=== PATIENT | female | born 1945 | race Caucasian/White ===

== ENCOUNTER 2019-12-25 23:36 | Inpatient (IN) | payer OTHER, BC ==
[~2019-12-25] VITALS: Ht 162.6 cm; Wt 54.4 kg
[2019-12-25 23:40] VITALS: BP 166/82
[2019-12-25] MEDS ORDERED: LISINOPRIL2.5 MG PO (23:46)
[2019-12-25] MEDS ORDERED: PRAVASTATIN SOD20 MG PO (23:46)
[2019-12-25] MEDS ORDERED: LATANOPROST 0.2.5 ML OPHTHALMIC (23:47)
[2019-12-25] MEDS ORDERED: ASA81BEC PO (23:48)
[2019-12-26] VITALS (11 sets, daily range): BP systolic 126–166; BP diastolic 56–95
[2019-12-26 00:16] LABS: ABSOLUTE NEUTROPHILS 8.4 thou/uL (1.4-8.2); BASOPHILS 0.5 % (0.0-2.0); EOSINOPHILS 2.1 % (0.0-3.0); HEMATOCRIT 37.1 % (37.0-47.0); HEMOGLOBIN 12.7 gm/dL (12.0-15.0); LYMPHOCYTES 15.4 % (24.0-44.0); MCHC 34.2 g/dL (28.0-37.0); MCV 102.5 fL (80.0-100.0); MONOCYTES 7.5 % (1.0-8.0); PLATELET COUNT 394 thou/uL (150-400); POLYS 74.5 % (36.0-66.0); RBC 3.62 mil/uL (4.20-5.00); RDW 13.2 % (10.5-14.5); WBC 11.2 thou/uL (4.0-11.0)
--- NOTE | 2019-12-26 00:31 | NUR ---
Report given to NGOZI Murray
[2019-12-26 02:18] LABS: CALCIUM 8.1 mg/dL (8.5-10.1); CREATININE 0.8 mg/dL (0.6-1.0); POTASSIUM 3.8 mmol/L (3.5-5.1)
--- NOTE | 2019-12-26 04:22 | NUR ---
PATIENT ADMITTED FROM ER DEPARTMENT AT 0353, CONNECTED TO MONITOR, ADMISSION INTERVENTIONS CONPELETED, CONSENTS SIGNED. PATIENT EDUCATED ON FALL PRECAUTIONS, CALL LIGHT, PATIENT PACKET. NO SIGN OF ACUTE DISTRESS NOTED AT THIS TIME.
--- NOTE | 2019-12-26 13:35 | NUR ---
ASSUMED CARE OF PT AT 0700. IV INFILTRATED WITH NS RUNNING, DR VAZQUEZ SAYS OK TO LEAVE OUT, CAN REPLACE IF NEEDED. PT WANTS TO GO HOME, STATES HER TONGUE FEELS MUCH BETTER AND SHE IS READY TO DC. HER IS ELDERLY AND REQUIRES MUCH CARE AT HOME. SORAYA CLEAR LIQUIDS AND ADVANCED TO FULL. DR VAZQUEZ WANTS TO GIVE ANOTHER DOSE OF PO PEPCID, PREDNISONE AND BENEDRYL BEFORE DINNER AND IF PT IS OK, DC HOME AT THAT TIME. PT IS AGREEABLE TO THIS PLAN.
[2019-12-26] MEDS ORDERED: PEPCID20 MG PO (17:42)
[2019-12-26] MEDS ORDERED: PREDNISONE 5 MG5 M1 PO (17:50)
[2019-12-26] MEDS ORDERED: DIPHENHYDR12.5 MG/2 PO (17:53)
[2019-12-26] MEDS ORDERED: NORVASC 2.5 MG2.5 M1 PO (18:00)
== END 2019-12-26 18:55 | disposition home or self-care (01) | DRG 916 ==
LOC: ER 23:36 → EROBS 12-26 02:58 → ICU 12-26 02:58
PROVIDERS: Emergency Medicine; ADMIT Internal Medicine; ATTEND Internal Medicine
DX: T78.3XXA Angioneurotic edema, initial encounter (principal); I10 Essential (primary) hypertension; F17.210 Nicotine dependence, cigarettes, uncomplicated; E78.5 Hyperlipidemia, unspecified; Z20.828 Contact with and (suspected) exposure to other viral communicable diseases; J30.2 Other seasonal allergic rhinitis; T46.4X5A Adverse effect of angiotensin-converting-enzyme inhibitors, initial encounter; X58.XXXA Exposure to other specified factors, initial encounter; Z79.82 Long term (current) use of aspirin; Z79.899 Other long term (current) drug therapy; Z88.8 Allergy status to other drugs, medicaments and biological substances; Y93.89 Activity, other specified; Y92.89 Other specified places as the place of occurrence of the external cause; Y99.8 Other external cause status
CPT/HCPCS: 10078